=== PATIENT | female | born 1980 | race Caucasian/White ===

== ENCOUNTER 2020-03-04 13:15 | Emergency (ER) | payer BC, SELFPAY ==
--- NOTE | 2020-03-04 14:07 | HMH.EDUTC ---
[facility] – [place], [place] Disposition Clinical Impression: Bacterial vaginosis Disposition: Home, Self-Care Condition on Discharge: Good Instructions: Bacterial Vaginosis, DI for Bacterial Vaginosis Additional Instructions: Take the medications as directed. 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 I sent in a prescription for diflucan in addition to the flagyl just in case you need that. GO TO THE ER FOR ANY WORSENING SYMTOMS OR CONCERNS Prescriptions: Fluconazole [Diflucan 150mg tab] 150 mg PO ONCE #1 tab Transmission Status: Received by [facility] [employer] #[id number] metroNIDAZOLE [Flagyl 500mg Tablet] 500 mg PO BID 7 Days #14 tab Transmission Status: Received by [facility] #[id number] Referrals: Provider,Referral, [Primary Care Provider] - Time of Disposition: 14:21 Medical Decision Making - Medical Records Medical records reviewed: No: I reviewed the patient's medical records. - Ciro Inquiry Pt receiving controlled substance: No Vital Signs: 03/04/20 14:09 03/04/20 14:22 Temperature 98.2 F 98.2 F Temperature Source Oral Oral Pulse Rate 94 H Pulse Rate [Right] 94 H Respiratory Rate 16 16 Blood Pressure 0/0 L Blood Pressure Source Automatic Cuff Blood Pressure Position Sitting 02 Sat by Pulse Oximetry 99 Oxygen Delivery Method Room Air Room Air [facility] – [place], [place] HPI - General Stated complaint: Possible UTI Time Seen by Provider: 03/04/20 14:07 - History of Present Illness Provider Complaint: She believes that she has bacterial vaginosis. She has had similar symptoms in the past and took flagyl to get it better. - Related Data Previous Rx's Medication Instructions Recorded Fluconazole [Diflucan 150mg tab] 150 mg PO ONCE #1 tab 03/04/20 metroNIDAZOLE [Flagyl 500mg 500 mg PO BID 7 Days #14 tab 03/04/20 Tablet] Allergies Allergy/AdvReac Type Severity Reaction Status Date / Time No Known Allergies Allergy Verified 03/04/20 14:21 [facility] History - Hepatitis A Screen Attestation statement:: This patient has been screened for Hepatitis A risk factors. I have reviewed the patient's past medical history: Yes - Social History Alcohol Intake: never Occupational Status: employed ROS Obtained: Yes All systems reviewed & no additional complaints - Constitutional Constitutional: Denies chills, Denies fever(s) - Musculoskeletal Musculoskeletal: Denies back pain - Integumentary/Breasts Skin/Breast: Reports as per HPI Physical Exam - General General appearance: alert, in no apparent distress - Head Head exam: atraumatic, normocephalic, normal inspection - Eye Eye exam: Present: normal appearance, PERRL, EOMI - ENT ENT exam: Present: normal exam, normal oropharynx, mucous membranes moist, TM's normal bilaterally, normal external ear exam - Neck Neck exam: Present: normal inspection, full ROM, trachea midline. Absent: meningismus, lymphadenopathy - Chest Chest inspection: Present: normal inspection, symmetric chest wall rise. Absent: tenderness - Respiratory Respiratory exam: Present: normal lung sounds bilaterally. Absent: respiratory distress - Cardiovascular Cardiovascular exam: Present: regular rate, normal rhythm. Absent: JVD - Abdominal Exam Abdominal exam: Present: soft, normal bowel sounds. Absent: distention, tenderness, guarding - Extremities Exam Extremities exam: Present: normal inspection, full ROM, normal capillary refill. Absent: calf tenderness - Back Exam Back exam: Present: normal inspection. Absent: tenderness - Neurological Exam Neurological exam: Present: alert, oriented X3 - Psychiatric Psychiatric exam: Present: normal affect, normal mood - Skin Skin exam: Present: warm, dry, intact, normal color - Lymphatic Lymphatic Findings: no adenopathy
[2020-03-04 14:09] VITALS: PULSE 94; RESP 16; TEMP 36.8; O2SAT 99; BMI 20.9
[2020-03-04 14:22] VITALS: BP 0/0; PULSE 94; RESP 16; TEMP 36.8; O2SAT 98
== END 2020-03-04 14:24 | disposition home or self-care (01) ==
PROVIDERS: Emergency Provider Nurse Practitioner Family; PCP Internal Medicine
DX: N76.0 Acute vaginitis (principal)
CPT/HCPCS: 99201